=== PATIENT | female | born 1965 | race Caucasian/White ===

== ENCOUNTER 2016-08-26 08:56 | Emergency (ER) | payer OTHER ==
[~2016-08-26] VITALS: Ht 154.9 cm; Wt 72.6 kg
[~2016-08-26 08:56] MED LIST: DIAZEPAM5 MG PO; LISINOPRIL40 MG PO; MOBIC15 M1 PO; NORCO 325 MG-51 TAB PO; PROAIR HFA0.09 MG/Ac PO; TUMS500 MG PO
[2016-08-26 09:10] VITALS: BP 138/84
--- NOTE | 2016-08-26 09:21 | ED ANKLE/FOOT INJURY COMPLAINT ---
History of Present Illness General Chief Complaint: Foot or Ankle Injury Stated Complaint: ?BROKEN R FOOT PER PT Source: patient Exam Limitations: no limitations Vital Signs & Intake/Output Vital Signs & Intake/Output Vital Signs Date Time Temp Pulse Resp B/P Pulse O2 O2 Flow FiO2 Ox Delivery Rate 08/26 0921 Room Air Room Air 08/26 909 98.1 110 20 138/84 98 Room Air Room Air Allergies Coded Allergies: NO KNOWN ALLERGIES (06/21/14) Reconcile Medications Albuterol Sulfate (Proair Hfa) 0.09 MG/Actuation RADHA 1-2 PUFF PO Q4-6 PRN PRN BREATHING PROBLEMS (Reported) Lisinopril 40 MG TABLET 1 TAB PO DAILY BP (Reported) Meloxicam (Mobic) 15 MG TABLET 1 TAB PO DAILY PAIN Meloxicam (Mobic) 15 MG TABLET 1 TAB PO DAILY PRN PAIN/INFLAMMATION Triage Note: PT TO ED WITH C/O PAIN TO TOP OF RIGHT FOOT, DENIES FALL OR INJURY. LAST MENSES: ABLATION, AND IN MENAPAUSE, LAST PERIOD 1.5 YEARS AGO. Triage Nurses Notes Reviewed? yes Duration: week(s): (1), constant, continues in ED Timing: recent history Severity: moderate, severe Pain/Injury Location: Right: Foot. No Modifying Factors: none HPI: 51-year-old female comes into emergency room with complaints of right foot pain has been going on for the past week. Patient reports that she cannot recall any particular injury. Sharp pain. Continuous. Hurts with any type of walking and range of motion. Denies any other associated symptoms or trauma. (RAINE SWEET) Past History Travel History Traveled to [place] past 21 day No Medical History Any Pertinent Medical History? 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 No (RAINE SWEET) Review of Systems Review of Systems Constitutional: Reports: no symptoms. EENTM: Reports: no symptoms. Respiratory: Reports: no symptoms. Cardiovascular: Reports: no symptoms. GI: Reports: no symptoms. Genitourinary: Reports: no symptoms. Musculoskeletal: Reports: see HPI. Skin: Reports: no symptoms. Neurological/Psychological: Reports: no symptoms. Hematologic/Endocrine: Reports: no symptoms. Immunologic/Allergic: Reports: no symptoms. All Other Systems: Reviewed and Negative (RAINE SWEET) Physical Exam Physical Exam General Appearance: well developed/nourished, mild distress Head: atraumatic Eyes: Bilateral: normal appearance, EOMI. Ears, Nose, Throat: normal ENT inspection, hearing grossly normal Neck: normal inspection Cardiovascular/Respiratory: no respiratory distress Back: normal inspection Leg/Knee/Thigh Left: normal range of motion Leg/Knee/Thigh Right: normal range of motion Ankle Right: normal inspection, normal range of motion Foot Right: normal inspection, normal range of motion, soft tissue tenderness Neuro/Vascular: normal motor function, normal sensation Tendon: normal tendon function Psychiatric: awake, alert, oriented x 3 Skin: intact, normal color, warm/dry (RAINE SWEET) Progress Differential Diagnosis: fracture, dislocation, sprain, contusion Plan of Care: Orders Procedure Date/time Status XRY-FOOT COMPLETE, RIGHT 08/26 919 Active Diagnostic Imaging: Viewed by Me: Radiology Read. Discussed w/RAD: Radiology Read. Comments: SERVICE DATE: 08/26/16 EXAM TYPE: RAD - XRY-FOOT COMPLETE, R EXAMINATION: XR FOOT, RIGHT CLINICAL INFORMATION: Foot pain. COMPARISON: Left foot radiographs. TECHNIQUE: AP, lateral, and oblique views of the right foot. FINDINGS: There is a hallux valgus deformity of the right foot via the metatarsophalangeal joint. There is no acute fracture or dislocation. Minimal spurring at the plantar surface of the calcaneus. Joint spaces are grossly maintained. No joint effusion. Soft tissues are unremarkable. IMPRESSION: No acute fracture or dislocation. There is a hallux valgus deformity and mild calcaneal spurring. 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 Rest. Mobic FOR PAIN. fOLLOW-UP WITH FOOT DOCTOR IF NOT BETTER IN one week. Return if any other concerns worsening symptoms. Departure Forms: Customer Survey General Discharge Information Prescriptions: Current Visit Scripts Meloxicam (Mobic) 1 TAB PO DAILY #15 TAB Comments 08/26/2016 10:50:29 AM No evidence of acute fracture. 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 Symptoms most consistent with likely tendinitis. Return if any other concerns. (MALI HEATON,RAINE) PA/ASSOCIATE CHEMIST Co-Sign Statement Statement: ED Attending supervision documentation- [] I saw and evaluated the patient. I have also reviewed all the pertinent lab results and diagnostic results. I agree with the findings and the plan of care as documented in the PA's/ASSOCIATE CHEMIST's documentation. [X] I have reviewed the ED Record and agree with the PA's/ASSOCIATE CHEMIST's documentation. [] Additions or exceptions (if any) to the PAs/ASSOCIATE CHEMIST's note and plan are summarized below: [] (VICENTE AMES DO)
--- NOTE | 2016-08-26 09:54 | RADIOLOGY REPORT ---
EXAMINATION: XR FOOT, RIGHT CLINICAL INFORMATION: Foot pain. COMPARISON: Left foot radiographs. TECHNIQUE: AP, lateral, and oblique views of the right foot. FINDINGS: There is a hallux valgus deformity of the right foot via the metatarsophalangeal joint. There is no acute fracture or dislocation. Minimal spurring at the plantar surface of the calcaneus. Joint spaces are grossly maintained. No joint effusion. Soft tissues are unremarkable. IMPRESSION: No acute fracture or dislocation. There is a hallux valgus deformity and mild calcaneal spurring.
[2016-08-26] MEDS ORDERED: MOBIC15 M1 PO (10:22)
== END 2016-08-26 10:53 ==
LOC: ERH 08:56
DX: M77.9 Enthesopathy, unspecified (principal)
CPT/HCPCS: 73630-RT

== ENCOUNTER 2017-09-19 07:04 | Emergency (ER) | payer OTHER ==
[~2017-09-19] VITALS: Ht 154.9 cm; Wt 72.6 kg
[~2017-09-19 07:04] MED LIST changes: +CIPRO500 M1 PO; +FLAGYL500 MG PO; -LISINOPRIL40 MG PO; +PERCOCET 5-3251 EACH PO; +PRINIVIL20 M1 PO; -PROAIR HFA0.09 MG/Ac PO; +PROAIR HFA8.5 GM INH
[2017-09-19 07:08] VITALS: BP 127/83
--- NOTE | 2017-09-19 07:31 | ED MVC/FALL/TRAUMA COMPLAINT ---
History of Present Illness General Chief Complaint: Lower Extremity Problems Stated Complaint: "FALL RT KNEE PAIN" Source: patient, old records Exam Limitations: no limitations Vital Signs & Intake/Output Vital Signs & Intake/Output Vital Signs Date Time Temp Pulse Resp B/P B/P Pulse O2 O2 Flow FiO2 Mean Ox Delivery Rate 09/19 0708 97.4 98 16 127/83 98 Room Air Allergies Coded Allergies: No Known Allergies (02/23/17) Reconcile Medications Ibuprofen 600 MG TABLET 1 TAB PO Q6PRN PRN pain with food Lisinopril 40 MG TABLET 1 TAB PO DAILY HEART (Reported) Triage Note: PT STATES THAT WHILE WALKING INTO WORK SHE TRIPPED ON UNEVEN SIDEWALK FALLING DOWN ONTO HER R KNEE, ABRASION NOTED. PT COMPLAINS OF STIFFNESS. DECLINES MEDS AT TRIAGE Triage Nurses Notes Reviewed? yes Onset: Just prior to arrival Duration: minute(s):, constant, continues in ED Timing: recent history Severity: mild Injuries/Fall Location: upper extremity, lower extremity Method of Injury: fall Loss of Consciousness: no loss of consciousness Modifying Factors: Improves With: rest. Worsens With: movement, palpation. LMP (ages 10-50): post menopausal : No Patient currently breastfeeds: No HPI: Prior to admission patient stumbled in the [employer] parking lot falling onto her right knee. She complains of right knee pain left little finger abrasion. She denies fever chills nausea vomiting diarrhea abdominal pain chest pain shortness breath headache dysuria rash. Past History Travel History Traveled to [place] past 21 day No Medical History Any Pertinent Medical History? 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 No Review of Systems Review of Systems Constitutional: Reports: no symptoms. Eyes: Reports: no symptoms. Ears, Nose, Throat, Mouth: Reports: no symptoms. Respiratory: Reports: no symptoms. Cardiovascular: Reports: no symptoms. Gastrointestinal/Abdominal: Reports: no symptoms. Genitourinary: Reports: no symptoms. Musculoskeletal: Reports: see HPI, joint pain. Skin: Reports: see HPI. Neurological/Psychological: Reports: no symptoms. All Other Systems: Reviewed and Negative Physical Exam Physical Exam General Appearance: well developed/nourished, alert, awake, anxious, obese Head: atraumatic, normal appearance Eyes: Bilateral: normal appearance, PERRL, EOMI, normal inspection. Ears, Nose, Throat, Mouth: hearing grossly normal, moist mucous membrane Neck: normal inspection, supple, full range of motion, normal alignment Respiratory: normal breath sounds, chest non-tender, no respiratory distress, quiet respiration, lungs clear Cardiovascular: regular rate/rhythm, normal peripheral pulses, norml femoral pulses equa Peripheral Pulses: 4+ carotid (R), 4+ carotid (L) Gastrointestinal: normal bowel sounds, soft, non-tender, no organomegaly Back: normal inspection, normal range of motion, no vertebral tenderness Extremities: evidence of injury, injury present, straight leg raised, Right knee abrasion with patellar tenderness. Left little finger abrasion. 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 No CVA/TIA Diagnosis No Sepsis Present: No Sepsis Focused Exam Completed? No Progress Differential Diagnosis: ext injury Plan of Care: Current Medications Sig/Myah Start time Last Medication Dose Stop Time Status Admin Ibuprofen 600 MG ONCE ONE 09/19 829 UNVr (Motrin) 09/19 830 Diagnostic Imaging: Viewed by Me: Radiology Read. Discussed w/RAD: Radiology Read. 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 No evidence of acute fracture and no dislocation. Departure Departure Time of Disposition: 820 Disposition: HOME OR SELF CARE Condition: Stable Clinical Impression Primary Impression: Contusion of knee, right Secondary Impressions: Abrasion of finger of left hand, Fall due to stumbling Referrals: Eve BETANCUR,Lebron Suero (PCP/Family) Departure Forms: Customer Survey [employer] Employee Acc Report General Discharge Information Prescriptions: Current Visit Scripts Ibuprofen 1 TAB PO Q6PRN PRN pain #50 TAB with food
[2017-09-19] MEDS ORDERED: LISINOPRIL40 M1 PO (07:55)
--- NOTE | 2017-09-19 08:02 | RADIOLOGY REPORT ---
EXAMINATION: XR KNEE, RIGHT CLINICAL INFORMATION: Fall in hospital parking lot to the right knee. COMPARISON: Right knee radiographs 05/10/2016. TECHNIQUE: Four views of the right knee. FINDINGS: There is asymmetric degenerative joint space narrowing of the medial compartment of the right knee and a patellofemoral joint with associated marginal hypertrophic osteophytic spurring. No evidence of acute fracture or dislocation. No joint effusion. Soft tissues are unremarkable. 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 No evidence of acute fracture and no dislocation.
[2017-09-19] MEDS ORDERED: IBUPROFEN600 M1 PO (08:23)
== END 2017-09-19 08:35 ==
LOC: ERH 07:04
DX: S80.01XA Contusion of right knee, initial encounter (principal); S60.417A Abrasion of left little finger, initial encounter; W19.XXXA Unspecified fall, initial encounter; Y93.9 Activity, unspecified; Y92.481 Parking lot as the place of occurrence of the external cause
CPT/HCPCS: 73562-RT